=== PATIENT | female | born 1980 | race Caucasian/White ===

== ENCOUNTER → 2017-11-02 14:20 | Outpatient (CLI) | payer OTHER, SELFPAY ==
[2017-11-02 14:55] LABS: Basophils % 0.6 % (0.1-2.0); Eosinophils # 0.4 K/mm3 (0.0-0.4); Eosinophils % 4.8 % (0.1-12.0); Hematocrit 40.2 % (37.0-47.0); Lymphocytes % 26.7 K/mm3 (10-50); Mean Corpuscular HGB Conc 32.3 g/dL (31.8-35.4); Mean Corpuscular Hemoglobin 30.1 pg (27.0-31.2); Mean Corpuscular Volume 92.9 fl (81-99); Mean Platelet Volume 7.2 fl (7.4-10.4); Monocytes # 0.5 K/mm3 (0.1-1.0); Monocytes % 6.3 % (1.7-9.3); Neutrophils # 4.6 K/mm3 (1.8-7.8); Neutrophils % 61.7 % (37.0-80.0); Platelet Count 260 K/mm3 (142-424); Red Blood Count 4.32 M/mm3 (4.20-5.40); Red Cell Distribution Width 12.7 % (11.5-17.5); White Blood Count 7.5 K/mm3 (4.8-10.8)
[2017-11-02 15:50] LABS: Thyroid Stimulating Hormone 10.66 uIU/ml (0.358-3.740)
== END ==
PROVIDERS: Family Provider Family Medicine; PCP Family Medicine Geriatric Medicine; Visit Provider Obstetrics & Gynecology
DX: N93.8 Other specified abnormal uterine and vaginal bleeding (principal)
CPT/HCPCS: 36415; 84443; 85025

== ENCOUNTER → 2017-11-10 15:19 | Outpatient (CLI) | payer OTHER, SELFPAY ==
--- NOTE | 2017-11-10 15:22 | US_ITS ---
US transvaginal HISTORY: Left lower quadrant pelvic pain, clotting ITS.REASON: pelvic pain ORDERING PHYSICIAN: Igor Almanzar MD PATIENT AGE: 37 years Comparison: None FINDINGS: UTERUS: The uterus measures 8.5 x 4.9 x 6 cm. Combined endometrial thickness is 7 mm. There are nabothian cysts present at the cervix measuring up to 9 mm. No uterine mass. Unremarkable endometrium. RIGHT OVARY: 3 x 2 x 2 cm with small follicles present measuring up to 1 cm. LEFT OVARY: 3 x 2.5 x 1.4 cm with small follicles measuring up to 9 mm. CUL-DE-SAC FLUID: No cul-de-sac fluid apparent OTHER FINDINGS: None IMPRESSION: 1. Small bilateral ovarian follicles and nabothian cysts. 2. Otherwise negative pelvic ultrasound
--- NOTE | 2017-11-10 15:22 | MM_ITS ---
MM Dig screening mamm BI w/CAD CAD Screening ORDERING PHYSICIAN : Igor Almanzar MD PATIENT AGE: 37 years GENDER: Female COMPARISON: Baseline screening study with no previous for comparison INDICATION: 37-year-old. Baseline mammogram. No hormones. No new complaints. Family history: maternal grandmother in her 40s premenopausal Maternal cousin 42. Paternal grandmother in her 50s postmenopausal. TECHNIQUE: Standard CC and MLO images were obtained. R2 CAD reviewed. FINDINGS: RIGHT BREAST: Area Labeled A: Ovoid mass measuring up to 2.5 cm x 1.5 cm at upper-outer quadrant right breast. Likely cyst but requires ultrasound to further evaluate. Area labeled B: 2 mm nodular density deep lateral left breast. Similar considerations.. Area labeled C: asymmetric density labeled C at the medial breast which is most likely overlapping shadows of fibroglandular elements however suggest a spot view CC, 90 degree and MLO view-of this area labeled C to exclude any architectural irregularity here. Most likely resides at the superior breast on MLO view. LEFT BREAST:The elongated ovoid 2.2 x 1.5 cm cm area at the deep lateral left breast labeled X.. Ill-defined rock . It may be a cyst. Ultrasound recommended initially, but but I would also include spot CC, MLO and 90 degree views of this area when patient returns to better delineate the margins. There are some small skin calcifications at the deep left breast at the inferior mammary fold IMPRESSION: bilateral breast masses/ densities, with no previous for comparison *Recommend* Bilateral Breast Ultrasound to further evaluate . *Also recommend spot views both breast as above BI-RADS Category: 0 Need Additional Imaging Evaluaiton . RECOMMENDED FOLLOW-UP: IMM - IMMEDIATE FOLLOW-UP RECOMMENDED Ultrasound both breast Spot views both breast (A letter has been sent to the patient regarding results of the study.) A
== END ==
PROVIDERS: Family Provider Family Medicine; PCP Family Medicine Geriatric Medicine; Visit Provider Obstetrics & Gynecology
DX: Z12.31 Encounter for screening mammogram for malignant neoplasm of breast (principal); R10.2 Pelvic and perineal pain
CPT/HCPCS: 76830; 77067

== ENCOUNTER → 2017-11-24 13:33 | Outpatient (CLI) | payer OTHER, SELFPAY ==
--- NOTE | 2017-11-24 | MM_ITS ---
MM Dig mamm BI DX w/CAD, US breast LT complete, US breast RT complete INDICATION: Follow-up abnormal mammogram ORDERING PHYSICIAN: Igor Almanzar MD PATIENT AGE: 37 years COMPARISON: 11/10/2017 TECHNIQUE: Problem-solving views performed of both breasts along with bilateral breast ultrasound FINDINGS: Right breast: The asymmetric density in the medial aspect of the right breast is once again noted but appears to represent fibroglandular tissue similar to other densities in the medial aspect of the right breast. There is a 2.4 x 1.5 cm nodule in the upper outer right breast. The anterior margin of the nodule somewhat obscured likely due to overlying breast tissue. This however is solid by ultrasound having a lobular configuration probably due to a fibroadenoma. Biopsy however is suggested. There is an additional 10 mm nodule in the lateral aspect of the right breast just medial to the larger nodule. This is hypoechoic on ultrasound and may represent a cyst however, there are some low level echoes within the nodule. Fine needle aspiration suggested. There are some parenchymal areas of asymmetric density in the right breast in the central and anterior aspect on the MLO view probably related to overlying fibroglandular tissue but will need follow-up. Right breast ultrasound: 2 cm x 0.8 cm isoechoic nodule with some heterogeneous echogenicity is present in the 10:00 region of the right breast corresponding to the larger mammographic abnormality. There is some nodularity of the posterior wall with some enhanced through transmission of sound. This may be due to a fibroadenoma however, there are some atypical characteristics and biopsy is suggested. In addition, there is a 1 cm hypoechoic nodule at 9:00. There is some decreased through transmission of sound. Fine-needle aspiration also suggested. If this does not aspirate, then biopsy should be performed. There is a cyst at 7:00 measuring 8 mm Left breast: Spot compression view show an ill-defined nodular density at 1.9 x 1.8 cm in the 3:00 region of the left breast. Left breast ultrasound: 5 mm cyst at 3:00. Second look ultrasound demonstrates a solid nodule at 3:00 at 1.8 x 0.7 cm. This does show some enhanced through transmission of sound and is fairly well-circumscribed and may be due to a fibroadenoma. Biopsy is recommended. IMPRESSION: There are bilateral solid nodules present 2.4 x 1.5 cm in o'clock region of the right breast and 1.8 x 0.7 cm in the 3:00 region left breast. These may be due to fibroadenomas. Ultrasound-guided mammotome biopsy suggested for confirmation. In addition, there is a hypoechoic nodule in the outer aspect of the right breast with decreased through transmission of sound. Recommend fine-needle aspiration. If this does not aspirate then biopsy will also be needed BI-RADS Category: 4 Suspicious Abnormality-Biopsy Considered RECOMMENDED FOLLOW-UP: BIO - BIOPSY RECOMMENDED Suggest bilateral ultrasound-guided mammotome biopsies as described above (A letter has been sent to the patient regarding results of the study.)
== END ==
PROVIDERS: Family Provider Family Medicine; PCP Family Medicine Geriatric Medicine; Visit Provider Obstetrics & Gynecology
DX: R92.8 Other abnormal and inconclusive findings on diagnostic imaging of breast (principal)
CPT/HCPCS: 76641; 77066

== ENCOUNTER → 2017-12-02 08:53 | Outpatient (CLI) | payer OTHER, SELFPAY ==
--- NOTE | 2017-12-02 | MM_ITS ---
US breast RT complete US mammotome bx RT, MM clip placement RT, US organ site (breast), US breast LT complete, US mammotome bx LT, MM clip placement LT, US organ site (breast), ULTRASOUND RIGHT AND LEFT BREAST BREAST. MAMMOTOME VACUUM ASSISTED CORE BX w/ clip placement at BOTH RIGHT & LEFT breast DIAGNOSTIC MAMMOGRAM RIGHT AND LEFT BREAST-Postbiopsy INDICATION: Bilateral breast nodules COMPARISON: 11/24/2017 diagnostic mammogram and bilateral breast ultrasound FINDINGS AND PROCEDURE: ULTRASOUND RIGHT BREAST: The initial ultrasound again shows solid ovoid mass at 10 o'clock position. This measures up to 21 mm x 9 mm. Outer deep right breast 10 o'clock position. This is similar to previous study.its position was confirmed and the best route for biopsy was determined by Dr. Meyers and technologist [facility] ULTRASOUND-GUIDED MAMMOTOME BIOPSY WITH CLIP PLACEMENT RIGHT BREAST] Following sterile preparation and local skin anesthesia and deep Xylocaine anesthetic placement we proceeded with subsequently mammotome biopsy Small 2 mm incision was made in the skin by Dr. Meyers after additional local skin anesthesia was placed, as well as deep anesthetic placement posterior to the lesion. The 12-gauge mammotome needle was then passed under ultrasound guidance. It was placed posterior aspect of the nodule and multiple biopsies were obtained removing significant portion portion of this generous nodule. Patient tolerated procedure well.. At the end of procedure small clip with collagen plug was placed at the biopsy site. DIAGNOSTIC RIGHT MAMMOGRAM POSTBIOPSY. Post Biopsy changes evident the nodular mass density at the o'clock is smaller with metallic Marker clip placed at its posterior margin. A second small 1 cm nodular density medial is evident on the mammogram. Labeled B and appears similar to the previous mammogram study. It may correlate with a small cyst at 7:00 on previous ultrasound. IMPRESSION: Right breast 1. Satisfactory mammotome biopsy of the 2.1 cm ovoid mass (labeled A) deep outer right breast 10 o'clock position., With clip placement at end of procedure., Latter was position was imaged with ultrasound and confirmed further with mammography. 2. A small 1 cm nodular density (previously labeled B) just medial to the area of biopsy is again noted appear stable on mammography. It may reflect a small cyst PATHOLOGY REPORT right breast nodule: No malignancy. 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 Meyers and technologist MW ULTRASOUND-GUIDED MAMMOTOME BIOPSY W/ CLIP PLACEMENT LEFT BREAST Following sterile preparation and local skin anesthesia & deep Xylocaine anesthetic placement we proceeded with subsequently mammotome biopsy Small 2 mm incision was made in the skin by Dr. Meyers after additional local skin anesthesia was placed, as well as deep anesthetic placement posterior to the lesion. The 12-gauge mammotome needle was then passed under ultrasound guidance. Mammotome needle was position under the posterior aspect of the nodule and multiple biopsies were obtained majority of the nodule at 3:00 deep left breast. Patient tolerated procedure well.. At the end of procedure small clip with collagen plug was placed at the biopsy site.
== END ==
PROVIDERS: Family Provider Family Medicine; PCP Family Medicine Geriatric Medicine; Visit Provider Obstetrics & Gynecology
DX: R92.8 Other abnormal and inconclusive findings on diagnostic imaging of breast (principal)
CPT/HCPCS: 19083; 19084; 76641; 76942; 77065; C2618